=== PATIENT | male | born 1995 | race Caucasian/White ===

== ENCOUNTER 2017-07-20 00:42 | Emergency (ER) | payer OTHER, BC ==
[~2017-07-20] VITALS: Ht 180.3 cm; Wt 83.9 kg
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
== END 2017-07-20 01:13 | disposition home or self-care (01) ==
LOC: ER 00:46
DX: Z04.1 Encounter for examination and observation following transport accident (principal); V47.5XXA Car driver injured in collision with fixed or stationary object in traffic accident, initial encounter
CPT/HCPCS: 99282

== ENCOUNTER 2018-10-02 10:14 | Emergency (ER) | payer BC, OTHER ==
[~2018-10-02] VITALS: Ht 182.9 cm; Wt 79.4 kg
[2018-10-02] MEDS ORDERED: CEPH-507 PO (11:04)
--- NOTE | 2018-10-02 11:04 | ED Upper Extremity ---
General Chief Complaint: Laceration Stated Complaint: FINGER LAC Nursing Triage Note: PT PRESENTS TO ER WITH COMPLAINT OF FINGER LACERATION ON LEFT 2ND FINGER. PT STATES HE WAS CUTTING CHEESE AND CUT FINGER. STATES LAST TETANUS WAS 3-4 YEARS AGO. Nursing Sepsis Screen: No Definite Risk Source: patient Exam Limitations: no limitations History of Present Illness Date Seen by Provider: Oct 02, 2018 Time Seen by Provider: 10:59 Initial Comments To ER with a left finger laceration. This occurred just prior to arrival from a knife while cutting cheese. Tetanus was updated 3-4 years ago. Onset: just prior to arrival Severity: moderate Pain/Injury Location: left 2nd finger Modifying Factors: Worse With Movement Allergies and Home Medications Allergies Coded Allergies: No Known Drug Allergies (Unverified , 07/20/17) Patient Home Medication List Home Medication List Reviewed: Yes Review of Systems Constitutional: see HPI EENTM: see HPI Respiratory: no symptoms reported Cardiovascular: no symptoms reported Genitourinary: no symptoms reported Musculoskeletal: no symptoms reported Skin: see HPI Psychiatric/Neurological: No Symptoms Reported Past Edvkjcj-Jcxqdc-Dvebid Hx Patient Social History Alcohol Use: Denies Use Recreational Drug Use: No Smoking Status: Current Everyday Smoker Type Used: Electronic/Vapor Recent Foreign Travel: No Contact w/Someone Who Travel: No Recent Infectious Disease Expo: No Recent Hopitalizations: No Immunizations Up To Date Tetanus Booster (TDap): Less than 5yrs Past Medical History Surgeries: No Respiratory: No Cardiac: No Neurological: No Genitourinary: No Gastrointestinal: No Musculoskeletal: No Endocrine: No HEENT: No Cancer: No Did You Recieve Any Treatments: No Psychosocial: No Integumentary: No Physical Exam Vital Signs Vital Signs - First Documented 10/02/18 10:38 Pulse 56 Resp 20 B/P (MAP) 146/81 (102) Pulse Ox 99 O2 Delivery Room Air Capillary Refill : Less Than 3 Seconds Height, Weight, BMI Height: 6'0" Weight: 175lbs. oz. 79.917527ar; 21.09 BMI Method:Stated General Appearance: WD/WN, no apparent distress HEENT: PERRL/EOMI Neck: non-tender, full range of motion Respiratory: no respiratory distress, no accessory muscle use Shoulder: normal inspection, non-tender Elbow/Forearm: normal inspection, non-tender Wrist: Yes normal inspection, Yes non-tender Hand: Left, laceration (there is a skin avulsion to the radial side dorsal aspect of the left pointer finger overlying the DIP joint. No evidence of extensor tendon injury.) Neurologic/Psychiatric: alert, normal mood/affect, oriented x 3 Skin: normal color, warm/dry Progress/Results/Core Measures Results/Orders Vital Signs/I&O 10/02/18 10:38 Pulse 56 Resp 20 B/P (MAP) 146/81 (102) Pulse Ox 99 O2 Delivery Room Air Blood Pressure Mean: 102 Departure Communication (Admissions) There is nothing to suture. Finger tourniquet was applied, this was scrubbed with chlorhexidine/saline solution then dried then covered with skin glue for the sake of hemostasis. Bandage was applied and a finger splint was also applied Impression Primary Impression: Avulsion of skin of finger Qualified Codes: S61.209A - Unspecified open wound of unspecified finger without damage to nail, initial encounter Disposition: 01 HOME, SELF-CARE Condition: Stable Departure-Patient Inst. Decision time for Depature: 11:02 Referrals: NO,LOCAL PHYSICIAN (PCP/Family) Primary Care Physician Patient Instructions: SKIN AVULSION Add. Discharge Instructions: 1. The glue will follow off on its own in about 3-5 days. You can shower allowing water run over it in the meantime but do not apply any petroleum-based products such as Vaseline bacitracin or triple antibiotic ointment as this can dissolve the glue. Wear the splint at all times except when showering to help prevent you from flexing the finger at that joint and prematurely tearing the glue loose. Take antibiotics as directed. Return to ER for any swelling redness or other concerns. All discharge instructions reviewed with patient and/or family. Voiced understanding. Scripts Cephalexin (Keflex) 500 Mg Capsule 500 MG PO TID, #15 CAP Prov: SEMAJ JENKINS APRN 10/02/18 Work/School Note: Work Release Form Date Seen in the Emergency Department: Oct 02, 2018 Return to Work: Oct 03, 2018 SEMAJ JENKINS APRN Oct 02, 2018 11:04
[2018-10-02 11:16] VITALS: BP 146/81
== END 2018-10-02 11:16 | disposition home or self-care (01) ==
LOC: EDUNIT# 10:14 → ER 10:15
DX: S61.211A Laceration without foreign body of left index finger without damage to nail, initial encounter (principal); F17.290 Nicotine dependence, other tobacco product, uncomplicated; W26.0XXA Contact with knife, initial encounter
CPT/HCPCS: 12001; 29130